=== PATIENT | female | born 1975 | race African-American/Black ===

== ENCOUNTER → 2017-10-08 | Outpatient (CLI) | payer MEDICARE, MEDICAID | END | disposition home or self-care (01) | LOC: CARD 08:50 | PROVIDERS: ATTEND Psychiatry & Neurology Neurology | DX: G91.9 Hydrocephalus, unspecified (principal); R51 Headache ==

== ENCOUNTER 2022-08-20 05:44 | Inpatient (IN) | payer MEDICARE, MEDICAID ==
[~2022-08-20] VITALS: Ht 175.3 cm; Wt 57.2 kg
[2022-08-20 06:40] LABS: CLARITY URINE CLEAR (CLEAR); COLOR URINE YELLOW (YELLOW); KETONES URINE NEGATIVE (NEGATIVE); LEUKOCYTE ESTERASE URINE NEGATIVE (NEGATIVE); NITRITE URINE NEGATIVE (NEGATIVE); OCCULT BLOOD URINE NEGATIVE (NEGATIVE); PH URINE 5.5 (4.5-8.0); PROTEIN URINE NEGATIVE (NEGATIVE); UROBILINOGEN URINE 0.2 E.U./dL (0.2-1.0)
[2022-08-20 06:45] LABS: UCG SCREEN NEGATIVE
[2022-08-20 06:48] LABS: CHLORIDE 110 mEq/L (98-107)
[2022-08-20 06:50] LABS: BASOPHILS % 1.2 % (0.0-2.0); EOSINOPHILS % 3.4 % (0.0-5.0); HEMATOCRIT. 37.7 % (36.0-48.0); HEMOGLOBIN. 12.2 g/dL (12.0-16.0); LYMPHOCYTES % 26.9 % (20.0-50.0); MEAN CORPUSCULAR HEMOGLOBIN 28.3 pg (28.0-32.0); MEAN CORPUSCULAR VOLUME 87.2 fL (81.0-99.0); MEAN PLATELET VOLUME 7.3 fl (7.4-10.4); MONOCYTES % 7.2 % (2.0-8.0); NEUTROPHILS % 61.3 % (40.0-76.0); PLATELET 336 x1000/uL (130-400); RED BLOOD CELL COUNT 4.33 mill/uL (4.2-5.4); RED CELL DISTRIBUTION WIDTH 14.9 % (11.6-14.6)
[2022-08-20] MEDS ORDERED: HYDR-4009 PO (06:52)
[2022-08-20] MEDS ORDERED: ASPI1POW35 PO (06:52)
[2022-08-20 06:53] LABS: PARTIAL THROMBOPLASTIN TIME 24.7 sec (23.4-31.0); PROTHROMBIN TIME 10.8 sec (9.6-11.0)
[2022-08-20] MEDS ORDERED: VASOPRESSIN 20 UNIT/ML 1ML ONE (07:17)
[2022-08-20] MEDS ORDERED: LACTATED RINGERS 1,000 ML IV SCH (07:30)
[2022-08-20] MEDS ORDERED: DEXAMETHASONE 4MG/ML 1ML VIAL ONE (08:16)
[2022-08-20] MEDS ORDERED: SUCCINYLCHOLINE CHLORIDE 200MG/10ML IV ONE (08:16)
[2022-08-20] MEDS ORDERED: CEFAZOLIN SODIUM 1000MG/VIAL ONE (08:16)
[2022-08-20] MEDS ORDERED: ONDANSETRON HCL 4MG/2ML INJ ONE (08:16)
[2022-08-20] MEDS ORDERED: LIDOCAINE HCL 1% 10 MG/ML 10ML VIAL ONE (08:17)
[2022-08-20] MEDS ORDERED: NEOSTIGMINE METHYLSULFATE 1MG/ML 10 ML VIAL ONE (08:17)
[2022-08-20] MEDS ORDERED: ROCURONIUM BROMIDE 10MG/ML VIAL 5ML IV ONE (08:17)
[2022-08-20] MEDS ORDERED: FENTANYL CITRATE/PF 50MCG/ML 2ML VIAL ONE (08:18)
[2022-08-20] MEDS ORDERED: PROPOFOL 200MG/20ML VIAL IV ONE (08:18)
[2022-08-20] MEDS ORDERED: MIDAZOLAM HCL 2 MG/2 ML VIAL ONE (08:18)
[2022-08-20] MEDS ORDERED: GLYCOPYRROLATE 0.2 MG/ML 2ML VIAL ONE ×3 (08:26→09:08)
[2022-08-20] MEDS ORDERED: METHYLENE BLUE 50 MG/10 ML AMP IV ONE (08:42)
[2022-08-20] MEDS ORDERED: ACETAMINOPHEN 650MG SUPP PR PRN (09:00)
[2022-08-20] MEDS ORDERED: TRAMADOL 50MG TABLET PO PRN (09:00)
[2022-08-20] MEDS ORDERED: ONDANSETRON HCL 4MG/2ML INJ IV PRN ×2 (09:00→09:30)
[2022-08-20] MEDS ORDERED: HYDROMORPHONE HCL/PF 2MG/ML CPJ ONE (09:08)
[2022-08-20] MEDS ORDERED: LABETALOL 5MG/ML SYR 20 MG/4 ML SYRINGE IV PRN (09:30)
[2022-08-20] MEDS ORDERED: HYDROMORPHONE HCL/PF 2MG/ML CPJ IV PRN (09:30)
[2022-08-20] MEDS ORDERED: NALOXONE HCL 0.4MG/ML VIAL IV PRN (09:30)
[2022-08-20] MEDS ORDERED: MEPERIDINE HCL/PF 25MG/ML CPJ IV PRN (09:30)
[2022-08-20 13:04] VITALS: BP 112/67
[2022-08-20] MEDS: DEXT 5%/0.45% NACL KCL 20MEQ/L 1,000 ML IV SCH (15:00)
[2022-08-20] MEDS: MORPHINE SULFATE 2 MG/ML CPJ (NOT FOR IM USE) IV PRN ×2 (16:06→20:26)
[2022-08-20 20:00] VITALS: BP 123/82
[2022-08-21] VITALS: BP 128/83
[2022-08-21] MEDS: DEXT 5%/0.45% NACL KCL 20MEQ/L 1,000 ML IV SCH ×3 (00:42→21:19)
[2022-08-21 04:00] VITALS: BP 125/85
[2022-08-21 08:00] VITALS: BP 128/82
[2022-08-21 10:32] LABS: BASOPHILS % 0.3 % (0.0-2.0); EOSINOPHILS % 0.1 % (0.0-5.0); HEMATOCRIT. 37.5 % (36.0-48.0); LYMPHOCYTES % 8.6 % (20.0-50.0); MEAN CORPUSCULAR HEMOGLOBIN 28.1 pg (28.0-32.0); MEAN CORPUSCULAR VOLUME 88.1 fL (81.0-99.0); MEAN PLATELET VOLUME 8.4 fl (7.4-10.4); MONOCYTES % 7.9 % (2.0-8.0); NEUTROPHILS % 83.1 % (40.0-76.0); PLATELET 266 x1000/uL (130-400); RED BLOOD CELL COUNT 4.26 mill/uL (4.2-5.4)
[2022-08-21] MEDS: DOCUSATE SODIUM 100MG CAPSULE PO SCH ×2 (11:04→17:47)
[2022-08-21 12:00] VITALS: BP 125/71
[2022-08-21 16:00] VITALS: BP 124/78
[2022-08-21 20:00] VITALS: BP 133/89
[2022-08-22] VITALS: BP 120/75
[2022-08-22 04:00] VITALS: BP 121/85
[2022-08-22] MEDS: DEXT 5%/0.45% NACL KCL 20MEQ/L 1,000 ML IV SCH (06:34)
[2022-08-22 08:00] VITALS: BP 129/85
[2022-08-22] MEDS: DOCUSATE SODIUM 100MG CAPSULE PO SCH ×2 (08:46→17:22)
[2022-08-22 12:00] VITALS: BP 130/85
[2022-08-22 16:00] VITALS: BP 132/97
[2022-08-22 20:00] VITALS: BP 117/70
[2022-08-23] VITALS: BP 120/81
[2022-08-23 07:54] VITALS: BP 115/77
[2022-08-23] MEDS: DOCUSATE SODIUM 100MG CAPSULE PO SCH (09:02)
[2022-08-23 09:06] VITALS: BP 115/77
== END 2022-08-23 10:23 | disposition home or self-care (01) | DRG 743 ==
LOC: OR 05:44 → 6EST 05:45
PROVIDERS: ADMIT Obstetrics & Gynecology Obstetrics; ATTEND Obstetrics & Gynecology Obstetrics
PROC: 0UT90ZZ Resection of Uterus, Open Approach (ICD-10-PCS; principal; 2022-08-20)
PROC: 0UT70ZZ Resection of Bilateral Fallopian Tubes, Open Approach (ICD-10-PCS; 2022-08-20)
PROC: 0DNW0ZZ Release Peritoneum, Open Approach (ICD-10-PCS; 2022-08-20)
DX: N93.9 Abnormal uterine and vaginal bleeding, unspecified (principal); D25.9 Leiomyoma of uterus, unspecified; N73.6 Female pelvic peritoneal adhesions (postinfective); Z20.822 Contact with and (suspected) exposure to COVID-19; N80.00 Endometriosis of the uterus, unspecified; Z80.9 Family history of malignant neoplasm, unspecified; Z56.0 Unemployment, unspecified; Z98.2 Presence of cerebrospinal fluid drainage device; Z98.51 Tubal ligation status
CPT/HCPCS: 36415; 80048; 81003; 81025; 85025; 86850; 86900; 87426; 88302; 88305; C9803; J0330; J0690; J1100; J1170; J2250; J2270; J2405; J2704; J2710; J3010; J3490; Q9968

== ENCOUNTER → 2025-04-18 | Outpatient (CLI) | payer MEDICARE, MEDICAID ==
[~2025-04-18] MED LIST: ASPI1POW35 PO; HYDR-4009 PO; REGADENOSON 0.4 MG/5 ML IV ONE
== END | disposition home or self-care (01) ==
LOC: NM 07:41
PROVIDERS: ATTEND Internal Medicine
DX: Z01.810 Encounter for preprocedural cardiovascular examination (principal); I08.8 Other rheumatic multiple valve diseases; I11.9 Hypertensive heart disease without heart failure
CPT/HCPCS: 78452; 93306; 93017; J2785; A9500